=== PATIENT | female | born 1975 | race Hispanic/Latino ===

== ENCOUNTER 2022-05-07 14:07 | Emergency (ER) | payer SELFPAY ==
[2022-05-07] MEDS ORDERED: DIAZEPAM 2 MG TABLET ONE (14:47)
[2022-05-07] MEDS ORDERED: HYDROCODONE/APAP 5/325 MG TAB ONE (14:47)
[2022-05-07] MEDS ORDERED: DIAZEPAM 5 MG TABLET ONE (14:51)
--- NOTE | 2022-05-07 15:35 | RAD REPORT ---
EXAM DESCRIPTION: RAD - Lumbar Spine 3 Views - 05/07/2022 3:22 pm CLINICAL HISTORY: PAIN Radiculopathy COMPARISON: No comparisons FINDINGS: Vertebral body heights appear maintained. No compression fracture noted. Disc spaces are m aintained. No spondylolysis or spondylolisthesis. IMPRESSION: Negative study.
--- NOTE | 2022-05-07 16:18 | EDPHYS ---
Physician Documentation [facility] Name: Misty Chema Mukherjee Age: 46 yrs Sex: Female : 1975 Arrival Date: 05/07/2022 Time: 14:11 Bed 12 Private MD: ED Physician Papa Huerta HPI: 05/07 16:24 This 46 yrs old Female presents to ER via Wheelchair with complaints of Fall ms3 Injury. 16:24 Details of fall: The patient fell from an upright position, while walking. Onset: The ms3 symptoms/episode began/occurred acutely, 2 hour(s) ago. Associated injuries: The patient sustained injury to the low back, pain. Severity of symptoms: At their worst the symptoms were moderate, in the emergency department the symptoms are unchanged. Patient states that she slipped on plastic causing her to fall. 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 - Social history:: Smoking status: Patient denies any tobacco usage or history of. Patient/guardian denies using alcohol. ROS: 16:24 Constitutional: Negative for fever, and chills. Eyes: Negative for injury, pain, ms3 redness, and discharge, Neck: Negative for injury, pain, and swelling, Cardiovascular: Negative for chest pain, and palpitations. Respiratory: Negative for shortness of breath, cough, wheezing, and pleuritic chest pain, Abdomen/GI: Negative for abdominal pain, nausea, vomiting, diarrhea, and constipation, MS/Extremity: Negative for injury and deformity, Skin: Negative for injury, rash, and discoloration, Hematologic/Lymphatic: Negative for swollen nodes, abnormal bleeding, and unusual bruising. 16:24 Back: Positive for pain. 16:24 All other systems are negative. Exam: 16:24 Constitutional: This is a well developed, well nourished patient who is awake, alert, ms3 and in no acute distress. Head/Face: Normocephalic, atraumatic. Neck: Trachea midline, no cervical lymphadenopathy. Supple, full range of motion without nuchal rigidity, or vertebral point tenderness. No Meningismus. Chest/axilla: Normal chest wall appearance and motion. Nontender with no deformity. Cardiovascular: Regular rate and rhythm with a normal S1 and S2. No gallops, murmurs, or rubs. Normal PMI, no JVD. No pulse deficits. Respiratory: Lungs have equal breath sounds bilaterally, clear to auscultation and percussion. No rales, rhonchi or wheezes noted. No increased work of breathing, no retractions or nasal flaring. Abdomen/GI: Soft, non-tender, with normal bowel sounds. No distension or tympany. No guarding or rebound. No evidence of tenderness throughout. Neuro: Awake and alert, GCS 15, oriented to person, place, time, and situation. Cranial nerves II-XII grossly intact. Motor strength 5/5 in all extremities. Sensory grossly intact. Cerebellar exam normal. Normal gait. Psych: Awake, alert, with orientation to person, place and time. Behavior, mood, and affect are within normal limits. 16:24 Back: pain, that is moderate, of the lumbar area, muscle spasm, is appreciated in the lumbar area, left low back and right low back. Vital Signs: 14:19 BP 115 / 75; Pulse 73; Resp 18; Temp 97.6(TE); Pulse Ox 99% on R/A; Weight 122.47 kg; iw Height 5 ft. 6 in. (167.64 cm); Pain 5/10; 14:19 Body Mass Index 43.58 (122.47 kg, 167.64 cm) iw MDM: 14:34 Patient medically screened. ms3 16:24 Differential diagnosis: contusion, fracture, sprain, strain. Data reviewed: vital ms3 signs, nurses notes, radiologic studies, plain films. Data reviewed: and as a result, I will discharge patient. Counseling: I had a detailed discussion with the patient and/or guardian regarding: the historical points, exam findings, and any diagnostic results supporting the discharge/admit diagnosis, radiology results, the need for outpatient follow up, to return to the emergency department if symptoms worsen or persist or if there are any questions or concerns that arise at home. ED course: Discussed x-ray, physical exam findings with patient. Patient to follow-up with primary care physician in 2 to 3 days. Patient understands and agrees with plan. All questions were answered. Return precautions discussed include worsening symptoms, or any other concerns. On reevaluation patient is alert and oriented x4, in no apparent distress, nontoxic-appearing, speaking full sentences.. 05/07 14:35 Order name: Lumbar Spine (3 Views) XRAY; Complete Time: 16:07 ms3 Administered Medications: 14:47 Drug: HYDROcodone-acetaminophen 5 mg-325 mg 1 tabs Route: PO; iw 14:47 Drug: Valium (diazepam) 5 mg Route: PO; iw Disposition Summary: 05/07/22 16:17 Discharge Ordered Location: Home ms3 Condition: Stable ms3 Diagnosis - Fall on same level, unspecified ms3 - Low back pain ms3 - Muscle spasm of back ms3 Followup: ms3 - With: Austen Perez DO - When: 2 - 3 days - Reason: Re-evaluation by your physician Discharge Instructions: - Discharge Summary Sheet ms3 - Acute Back Pain, Adult ms3 - Musculoskeletal Pain ms3 - Spasticity ms3 Forms: - Medication Reconciliation Form ms3 - Thank You Letter ms3 - Antibiotic Education ms3 - Prescription Opioid Use ms3 Prescriptions: - Ibuprofen 600 mg Oral Tablet - take 1 tablet by ORAL route every 6 hours As needed take with food; 30 tablet; ms3 Refills: 0, Product Selection Permitted - Cyclobenzaprine 5 mg Oral Tablet - take 1 tablet by ORAL route 3 times per day As needed; 15 tablet; Refills: 0, ms3 Product Selection Permitted Signatures: Dispatcher [employer] Jennifer Hodge RN RN iw Papa Huerta DO DO ms3
--- NOTE | 2022-05-07 16:18 | ER ---
Nurse's Notes [facility] Name: Mistyalek Mukherjee Age: 46 yrs Sex: Female : 1975 Arrival Date: 05/07/2022 Time: 14:11 Bed 12 Private MD: Diagnosis: Fall on same level, unspecified;Low back pain;Muscle spasm of back Presentation: 05/07 14:19 Chief complaint: Patient states: Fell 2 hours ago - c/o pain in back. Coronavirus iw screen: At this time, the client does not indicate any symptoms associated with coronavirus-19. Ebola Screen: No symptoms or risks identified at this time. Initial Sepsis Screen: Does the patient meet any 2 criteria? No. Patient's initial sepsis screen is negative. Does the patient have a suspected source of infection? No. Patient's initial sepsis screen is negative. Risk Assessment: Do you want to hurt yourself or someone else? Patient reports no desire to harm self or others. Onset of symptoms was May 07, 2022. 14:19 Method Of Arrival: Wheelchair iw 14:19 Acuity: HENRRY 3 iw Triage Assessment: 14:21 General: Appears in no apparent distress. comfortable, Behavior is calm, cooperative, iw appropriate for age. Pain: Complains of pain in back Pain does not radiate. Pain currently is 6 out of 10 on a pain scale. EENT: No signs and/or symptoms were reported regarding the EENT system. Neuro: Level of Consciousness is awake, alert, obeys commands, Oriented to person, place, time, situation. Cardiovascular: Capillary refill < 3 seconds Patient's skin is warm and dry. Respiratory: Airway is patent Respiratory effort is even, unlabored. GI: Abdomen is round obese. 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 - Social history:: Smoking status: Patient denies any tobacco usage or history of. Patient/guardian denies using alcohol. Assessment: 16:49 Reassessment: Patient appears in no apparent distress at this time. Patient and/or jb4 family updated on plan of care and expected duration. Pain level reassessed. Patient is alert, oriented x 3, equal unlabored respirations, skin warm/dry/pink. Vital Signs: 14:19 BP 115 / 75; Pulse 73; Resp 18; Temp 97.6(TE); Pulse Ox 99% on R/A; Weight 122.47 kg; iw Height 5 ft. 6 in. (167.64 cm); Pain 5/10; 14:19 Body Mass Index 43.58 (122.47 kg, 167.64 cm) iw ED Course: 14:11 Patient arrived in ED. rg4 14:16 Papa Huerta DO is Attending Physician. ms3 14:19 Arm band placed on right wrist. iw 14:21 Triage completed. iw 14:37 Jennifer Chavez, RN is Primary Nurse. iw 15:23 Lumbar Spine (3 Views) XRAY In Process Unspecified. EDMS 16:16 Austen Perez DO is Referral Physician. ms3 16:49 Patient has correct armband on for positive identification. jb4 16:49 No provider procedures requiring assistance completed. Patient did not have IV access jb4 during this emergency room visit. Administered Medications: 14:47 Drug: HYDROcodone-acetaminophen 5 mg-325 mg 1 tabs Route: PO; iw 14:47 Drug: Valium (diazepam) 5 mg Route: PO; iw Medication: 16:49 VIS not applicable for this client. jb4 Outcome: 16:17 Discharge ordered by MD. ms3 16:49 Discharged to home via wheelchair, with family. jb4 16:49 Condition: stable 16:49 Discharge instructions given to patient, Instructed on discharge instructions, follow up and referral plans. no drinking with medication, no driving heavy equipment, medication usage, Demonstrated understanding of instructions, follow-up care, medications, Prescriptions given X 2. 16:50 Patient left the ED. jb4 Signatures: Dispatcher [employer] EDMS Jennifer Chavez, RN KIMBERLY iw Shirley Jean-Baptiste rg4 Donaldo Stoner RN RN jbPapa Pryor DO DO ms3 Corrections: (The following items were deleted from the chart) 14:22 14:19 BP 149 / 76; Pulse 73bpm; Resp 18bpm; Pulse Ox 99% RA; Temp 97.6F Temporal; iw 122.47 kg; Height 5 ft. 6 in.; BMI: 43.5; Pain 5/10; iw
[2022-05-07 17:02] VITALS: BP 115/75; TEMP 97.6; O2SAT 99
== END 2022-05-07 16:50 | disposition home or self-care (01) ==
LOC: ER 14:07
DX: M62.830 Muscle spasm of back (principal); W18.30XA Fall on same level, unspecified, initial encounter
CPT/HCPCS: 72100